=== PATIENT | female | born 2000 | race Caucasian/White ===

== ENCOUNTER 2023-11-03 15:21 | Inpatient (IN) ==
--- NOTE | 2023-11-03 15:29 | ED Triage Note ---
Date of Service November 03, 2023 Provider in Triage Author: Ki Hodgson History of Present Illness This patient was briefly evaluated while in triage. An abbreviated physical exam was performed. This patient is a 23-year-old Female who presents to the ED for evaluation of worsening OCD. Patient reports that she got into an argument/breaking up with her boyfriend yesterday, "worsening my mental health". Patient reports that she has thought of hurting herself, but does not have a plan. She denies any homicidal thoughts. Physical Exam CONSTITUTIONAL: Healthy and well nourished. HEENT: Normocephalic, atraumatic. LYMPHATICS: No cervical chain adenopathy. INTEGUMENTARY: No rash or other significant dermatologic conditions noted. HEMATOLOGIC: No ecchymosis or petechiae. PSYCHIATRIC: Flat affect. NEUROLOGIC: No focal neurologic deficits noted. Initial orders for labs and / or imaging were placed and patient was placed in the waiting area until a bed is available. Please see further documentation for the full ED course.
--- NOTE | 2023-11-03 15:56 | Emergency Department Note ---
Impression & Plan Suicidal ideation, Depression ED Provider Note HISTORY OF PRESENT ILLNESS: Patient is a 23-year-old female presenting with suicidal ideation. Patient reports that she has a history of OCD and is on Lexapro 10 mg. Reports she was previously on 5 mg, but her Lexapro was increased to 10 mg yesterday. Reports that as of late, she has been very stressed out and her OCD has been worse than normal. Reports that she broke up with her boyfriend yesterday and subsequently found out that he went and hooked up with a friend. She is feeling very depressed and wants to end her life. Reports multiple plans, including overdose on her Lexapro and walking out into traffic. She reports "I would want to make sure I do it right and if I had a gun I would use it." She initially called crisis who referred her to the emergency department. Patient denies any homicidal ideation. Denies any auditory or visual hallucinations. Reports she has not been eating well recently or sleeping well. Denies any previous suicide attempts. She does report that when she gets really stressed out she will scratch herself, but reports that she does not want to do that currently. ROS: as above PHYSICAL EXAM: Constitutional: Patient appears in no acute distress. HENT: Head: Normocephalic and atraumatic. Eyes: EOMI, PERRL Mouth/Throat: Mucous membranes moist. Neck: Trachea midline. Neck supple. Musculoskeletal: No edema, tenderness or deformity noted. Skin: Warm and dry. No rash, erythema, pallor or cyanosis Psychiatric: Flat affect. Tearful Neurological: Alert and keenly responsive. CN II-XII grossly intact, moving all extremities equally and fully. MDM: - Vitals signs stable. - History obtained via patient. Patient presents with suicidal ideation. Patient recently had a break-up with her boyfriend and some social stressors. She currently wants to end her life and has multiple plans. She has never been inpatient. She just had her Lexapro increased from 5 mg to 10 mg yesterday. - Chronic conditions affecting care: anxiety/depression - Differential diagnoses include, but are not limited to: UTI; depression; electrolyte abnormality - External medical records reviewed. - Laboratory workup interpreted by myself showed normal WBC; stable electrolytes; normal TSH; negative salicylate/acetaminophen/ethanol levels - UA negative for infection - UDS positive for THC - COVID negative - Patient seen in conjunction with ED behavioral health manager case. Patient was a voluntary 201. She was excepted to [address] [place] [address] inpatient psychiatric unit. ASSESSMENT AND PLAN: Diagnosis: Suicidal ideation; depression Plan: admit to [address] [place] [address] Past Med/Surg History Medical History (Updated 11/03/23 @ 17:30 by Britney Isaac MD) Migraines Dysmenorrhea Asthma Depression Heavy menses Social anxiety disorder Anorexia nervosa ASD (atrial septal defect) Hypermobility syndrome Chronic nausea Surgical History (Updated 09/10/23 @ 15:34 by Ti Mitchell MA) [place] teeth removed H/O laparoscopy Family History (Updated 09/10/23 @ 15:35 by Ti Mitchell MA) Mother Asthma Depression Sister Depression Social History (Updated 09/10/23 @ 15:24 by Ti Mitchell MA) Smoking Status: Current some day smoker Do You Dip or Chew Tobacco: No; Hx Alcohol Use: No Hx Substance Use: Yes Prescribed Medications: Marijuana Preferred Language: Spanish Feels Safe at Home: Yes Gender Identity: Female Allergies Allergies Allergy/AdvReac Type Severity Reaction Status Date / Time adhesive tape Allergy dermatitis Verified 12/19/21 15:34 Home Meds Home Medications Medication Instructions Recorded Confirmed albuterol sulfate 90 mcg/actuation 2 puff inhalation Q6H PRN Panic 09/10/23 11/03/23 aerosol inhaler Attack(S) Lexapro 10 mg PO DAILY Depression 11/03/23 11/03/23 Results & Data (ED) Vital Signs Vital Signs - 24 hr 11/03/23 15:25 Temperature 36.6 C Temperature Source Temporal Artery Scan Pulse Rate 87 Respiratory Rate 16 Respiratory Effort / Characteristics Non-Labored Spontaneous Respiratory Depth Normal Respiratory Pattern Regular Blood Pressure 130/96 Blood Pressure Mean 107 Pulse Oximetry 99 Oxygen Delivery Method Room Air Sepsis Recent Fever Within 48 Hours No Sepsis New/Unexplained Change in Mental Status N/A Sepsis Action Taken by Nursing No Action Required Laboratory Data 11/03/23 16:18 11/03/23 16:18 Lab Results 11/03/23 11/03/23 Range/Units 15:39 16:18 WBC 10.63 (4.8-10.8) K/ul RBC 4.83 (4.20-5.40) M/uL Hgb 14.4 (12.0-16.0) g/dl Hct 41.6 (37.0-47.0) % MCV 86.1 (80.0-100.0) fL MCH 29.8 (25.0-34.0) pg MCHC 34.6 (32.0-36.0) g/dL RDW Std Deviation 40.0 (36.4-46.3) fL RDW Coeff of Adam 12.8 (11.5-14.5) % Plt Count 230 (130-400) K/uL MPV 9.0 L (9.4-12.4) fL Immature Gran % (Auto) 0.3 % Neut % (Auto) 79.4 % Lymph % (Auto) 15.7 % Grady % (Auto) 4.3 % Eos % (Auto) 0.0 % Baso % (Auto) 0.3 % Neut # (Auto) 8.44 H (1.40-6.50) K/uL Lymph # (Auto) 1.67 (1.20-3.40) K/uL Grady # (Auto) 0.46 (0.11-0.59) K/uL Eos # (Auto) 0.00 (0.00-0.50) K/uL Baso # (Auto) 0.03 (0.00-0.20) K/uL Immature Gran # (Auto) 0.03 (0.01-0.20) K/uL Sodium 137 (136-145) mmol/L Potassium 3.5 (3.5-5.1) mmol/L Chloride 106 (98-107) mmol/L Carbon Dioxide 22 (21-32) mmol/L Anion Gap 9 (3-11) BUN 10 (6-23) mg/dl Creatinine 0.58 L (0.6-1.2) mg/dl Est Cr Clr Drug Dosing 114.8 ml/min Est GFR ( Amer) > 150.0 ml/min Est GFR (Non-Af Amer) 131.8 ml/min BUN/Creatinine Ratio 17.2 (10-20) Glucose 89 (70-99(Fasting)) mg/dl Calcium 9.8 (8.6-10.3) mg/dl Total Bilirubin 0.3 (0.2-1.0) mg/dl AST 16 (13-39) U/L ALT 9 (7-52) U/L Alkaline Phosphatase 53 (34-104) U/L Total Protein 7.6 (6.0-8.3) gm/dl Albumin 5.0 (3.4-5.0) gm/dl Globulin 2.6 (2.5-4.0) gm/dl Albumin/Globulin Ratio 1.9 (0.9-2) TSH 1.814 (0.300-4.500) uIu/ml Urine Color Yellow Urine Appearance Slightly Cloudy (Clear) Urine pH 8.5 H (4.5-7.5) Ur Specific Hallam 1.020 (1.000-1.030) Urine Protein 2+ H (Negative) Urine Glucose (UA) Negative (Negative) Urine Ketones Negative (Negative) Urine Blood Negative (Negative) Urine Nitrite Negative (Negative) Urine Bilirubin Negative (Negative) Urine Urobilinogen Negative (Negative) Ur Leukocyte Esterase Negative (Negative) Urine RBC 0-4 (0-4) /hpf Urine WBC 0-5 (0-5) /hpf Ur Epithelial Cells >30 H (0-5) /lpf Urine Bacteria Negative (Negative) Hyaline Casts 0-5 (0-5) /lpf Salicylates < 3.0 L (3.0-30) mg/dl Urine Opiates Screen Neg (Neg) Ur Methadone, Qual Neg (Neg) Acetaminophen < 3 L (10-30) ug/ml Urine Barbiturates Neg (Neg) Ur Phencyclidine (PCP) Neg (Neg) U Amphetamin/Meth Scrn Neg (Neg) MDMA (Ecstasy) Screen Neg (Neg) U Benzodiazepines Scrn Neg (Neg) Ur Cocaine Metabolite Neg (Neg) U Marijuana (THC) Screen Pos H (Neg) Ethyl Alcohol mg/dL < 10.0 (<10.0) mg/dl SARS-CoV-2, RNA, NAAT NEGATIVE (NEGATIVE) Discharge Plan Visit Data Chief Complaint: Mental Health Evaluation Stated Complaint: MENTAL HEALTH EVAL ED Provider: Britney Isaac Discharge Problem: Suicidal ideation, Depression Forms Stand Alone Forms: My [facility], Suicide Prevention Resources Prescriptions Prescriptions: No Action albuterol sulfate 90 mcg/actuation HFA aerosol inhaler 2 puff inhalation Q6H PRN (Reason: Panic Attack(S)) Lexapro capsule 10 mg PO DAILY Referrals Referrals: Conrad Gamez [Primary Care Provider] -
[2023-11-03 16:05] LABS: Appearance Urine Slightly Cloudy (Clear); Bilirubin Urine Negative (Negative); Blood Urine Negative (Negative); Color Urine Yellow; Glucose Urine UA Negative (Negative); Ketones Urine Negative (Negative); Leukocyte Esterase Urine Negative (Negative); Nitrite Urine Negative (Negative); Protein Urine 2+ (Negative); Urobilinogen Urine Negative (Negative); pH Urine 8.5 (4.5-7.5)
[2023-11-03 16:12] LABS: Epithelial Cell Urine >30 /lpf (0-5)
[2023-11-03 16:13] LABS: Bacteria Urine Negative (Negative); Hyaline Casts Urine 0-5 /lpf (0-5); RBC Urine 0-4 /hpf (0-4); WBC Urine 0-5 /hpf (0-5)
[2023-11-03 16:45] LABS: Amphetamines+Metham, Urine Neg (Neg); Barbiturates, Urine Neg (Neg); Benzodiazepine, Urine Neg (Neg); Cocaine, Urine Neg (Neg); MDMA (Ecstacy), Urine Neg (Neg); Marijuana, Urine Pos (Neg); Methadone, Urine Neg (Neg); Opiate, Urine Neg (Neg); Phencyclidine, Urine Neg (Neg)
[2023-11-03 16:47] LABS: Basophils # (auto) 0.03 K/uL (0.00-0.20); Basophils % (auto) 0.3 %; Hematocrit (blood only) 41.6 % (37.0-47.0); Hemoglobin 14.4 g/dl (12.0-16.0); Immature Granulocytes # (auto) 0.03 K/uL (0.01-0.20); Immature Granulocytes % (auto) 0.3 %; Lymphocytes # (auto) 1.67 K/uL (1.20-3.40); Lymphocytes % (auto) 15.7 %; Mean Corpuscular Hemoglobin 29.8 pg (25.0-34.0); Mean Corpuscular Hgb Conc 34.6 g/dL (32.0-36.0); Mean Corpuscular Volume 86.1 fL (80.0-100.0); Monocytes # (auto) 0.46 K/uL (0.11-0.59); Monocytes % (auto) 4.3 %; Neutrophils # (auto) 8.44 K/uL (1.40-6.50); Neutrophils % (auto) 79.4 %; Platelet Count 230 K/uL (130-400); RDW Coefficient of Variation 12.8 % (11.5-14.5); Red Blood Count 4.83 M/uL (4.20-5.40); White Blood Count 10.63 K/ul (4.8-10.8)
[2023-11-03 17:06] LABS: Acetaminophen < 3 ug/ml (10-30); Alanine Aminotransferase 9 U/L (7-52); Albumin Globulin Ratio 1.9 (0.9-2); Alkaline Phosphatase 53 U/L (34-104); Anion Gap 9 (3-11); Aspartate Aminotransferase 16 U/L (13-39); BUN Creatinine Ratio 17.2 (10-20); Bilirubin,Total 0.3 mg/dl (0.2-1.0); Blood Urea Nitrogen 10 mg/dl (6-23); Calcium 9.8 mg/dl (8.6-10.3); Carbon Dioxide 22 mmol/L (21-32); Chloride 106 mmol/L (98-107); Creatinine Clr Calc Pharmacy 114.8 ml/min; Est GFR (African American) > 150.0 ml/min; Est GFR (Non-African American) 131.8 ml/min; Globulin 2.6 gm/dl (2.5-4.0); Glucose 89 mg/dl (70-99(Fasting)); Potassium 3.5 mmol/L (3.5-5.1); Salicylate < 3.0 mg/dl (3.0-30); Sodium 137 mmol/L (136-145); Total Protein 7.6 gm/dl (6.0-8.3)
[2023-11-03 17:20] LABS: Thyroid Stimulating Hormone 1.814 uIu/ml (0.300-4.500)
[2023-11-03] MEDS ORDERED: hydrOXYzine HCl 25 MG TAB PO PRN (21:34)
[2023-11-03] MEDS ORDERED: BISMUTH SUBSALICYLATE LIQD 236 ML PO PRN (21:34)
[2023-11-03] MEDS ORDERED: ALUMINUM/MAGNESIUM SUSP 30 ML UDC PO PRN (21:34)
[2023-11-03] MEDS ORDERED: MAGNESIUM HYDROXIDE SUSP 30 ML UDC PO PRN (21:34)
[2023-11-03] MEDS ORDERED: SODIUM CHLORIDE 0.65% NA SOLN 45 ML (OCEAN) PRN (21:34)
[2023-11-04] MEDS: hydrOXYzine HCl 25 MG TAB PO PRN ×2 (00:34→21:11)
[2023-11-04] MEDS ORDERED: ESCITALOPRAM OXALATE 10 MG TAB PO SCH (09:00)
[2023-11-04] MEDS: ACETAMINOPHEN 325 MG TAB PO PRN (10:49)
--- NOTE | 2023-11-04 16:44 | History & Physical ---
Date of Service November 04, 2023 Impression / Recommendations Impression 23 y/o F with history of OCD, anorexia, possibly ASD who had a recent severe relationship loss and became actively suicidal. Her longstanding obsessions take the form of intrusive thoughts of or of ways she might kill herself. She has no history of treatment attempts prior to the recently-started escitalopram. She meets criteria for Adjustment Disorder with Depressed Mood and Obsessive- Compulsive Disorder. She is currently psychiatrically unstable and requires psychiatric hospitalization for safety, stabilization, and medication management. Pt volunteered her understanding that SSRI's are a preferred type of medication for OCD as well as that her current dose was likely still low. Risks and benefits of, and alternatives to, the use of escitalopram (Lexapro) for Obsessive-Compulsive Disorder symptoms were reviewed. This discussion included but was not limited to issues known potentially to be associated with use of such medication, especially at high doses or with longer use, including sedati on, weight gain, GI side effects, or rarely induction or worsening of suicidal thoughts about which there is an FDA warning for adolescents and young adults. Discussed the need to avoid abrupt cessation due to risk of discontinuation syndrome. The patient would like to titrate escitalopram to 20 mg. Overall I spent a total of 82 minutes on the floor for this admission including review of chart records, review of test results, direct evaluation of the patient [id number], counseling the patient, reconciling and ordering medication, medication education with the patient, risk assessment, discussion during interdisciplinary treatment rounds, and documentation in the electronic health record. (1) Adjustment disorder with depressed mood: (2) Obsessive compulsive disorder: Plan The patient was admitted to the [facility] ([facility] unit) on q15 minute checks (behavioral with suicide precautions) for safety.The patient will participate in group, recreational, and milieu therapies and will be offered additional individual and family sessions as clinically appropriate. * increase escitalopram to 20 mg daily - prior to admission medication at 10 mg daily Inventory Assets Strengths: supportive relationships, has local supports, voluntary, good insight, intelligent, attending classes Needs: safety and stabilization, medication adjustment, additional coping skills Suicide Risk Level Suicide Risk Level: High-Moderate (q15 min suicide checks) (continues to have thoughts, though contracts for safety on the unit) 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 Chief Complaint "My obsessions have really gotten out of control". History of Present Illness As part of a thorough review of the available medical records, I have read and incorporated into my assessment the following note by the ED physician: "This patient is a 23-year-old Female who presents to the ED for evaluation of worsening OCD. Patient reports that she got into an argument/breaking up with her boyfriend yesterday, "worsening my mental health". Patient reports that she has thought of hurting herself, but does not have a plan. She denies any homicidal thoughts." the following note by the ED psychiatric piano case maker: "Met with the patient during Dr. Herrera examination to complete Brief and Suicide Risk Assessments then met with the patient to gather information for [facility] Psychiatric Mental Health Evaluation. The patient presents from [facility] where she was assessed and expressed suicidal ideations following the breakup with her boyfriend of almost 2 years (reports she thought the relationship was going well and wasnt expecting the breakup. The patient reports she doesnt have a specific plan at this time, but has thought of ways to kill herself, but doesnt want to do anything that doesnt work. She reports she has thought of overdosing on medication or walking in front of a car, but the cars go too slow, so I would have to walk somewhere else. The patient reports he boyfriend broke up with her because he found out he wont be able to graduate due to grades and he felt he wouldnt be a good partner for her. She reports he hasnt wanted to talk to her about the breakup and found out that he hooked up with a close friend of his after breaking up with her. The patient reports she was already in a bad place with her mental health secondary to her OCD and report recently starting on Lexapro (increased to 10mg yesterday), but she doesnt feel as though it is effective yet. The patient reports stressors of her breakup and her general mental health related to her OCD. She reports she has depressive symptoms of anergia, anhedonia, crying and feeling helpless and hopeless. She reports a history of anorexia nervosa (treated a year ago and hasnt had any problems since then) and a poor appetite of the past few days since the breakup. The patient reports problems falling and staying asleep, then not being motivated to get up in the mornings, which causes her to miss classes (reports she isnt doing poorly in school, but may be getting Bs instead of As in some of her classes). The patient reports high levels of anxiety recently (currently a 9) with shortness of breath, chest pain and decreased appetite. The patient admits to social drinking and using marijuana prior to meals (related to history of gastroparesis). She reports a history of SIB from scratching (last around a year ago) and a remote history of friction vogel from erasers. The patient denies manic symptoms, hallucinations / delusional thinking, H/I, aggressive behavior, trauma and access to weapons. The patient is considering inpatient treatment but would like to speak with her mother (who is on the way to the hospital) prior to making any decisions." and the following note by the psychiatric liaison nurse: "Alert and oriented x4. Pt tearful but cooperative. Pt allowed for mom and sister to stay in room during liaison assessment in ED. 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 Pt states she took an uber to the ED. Pt states having suicidal ideations for past 9 months but had escalated after her boyfriend had broken up with her a day (or so) ago. Pt states her boyfriend knew he was not going to pass and graduate from [employer] and that's why he said he was breaking up with her. Pt states then her ex hooked up with one of his female friends yesterday. Pt states she was already having issues with mental health. Pt states she has OCD and has been having intrusive thoughts about for last 9 months as well. Pt denies these thoughts as any type of hallucinations telling her to kill herself. Pt denies any type of hallucinations or delusions. Pt denies current SI but has scratched her skin and given herself friction vogel with erasers over a year ago. Pt states having a hx of OCD, autism, anorexia, and past social anxiety disorder. Pt also stating having gastroparesis (and eating marijuana gummies to help with this). Pt denies hx of suicide attempts. Denies trauma hx. Pt denies prior psychiatric inpatient admissions. Later states she was hospitalized in fall 2021 for anorexia. Pt states current medications include Lexapro that was started a few weeks ago and recently increased to 10mg po daily. Current outpt providers include Dr. Gamez with [facility], Ernesto Edwards (therapy), and Neha Au [facility] at [facility] (who prescribes her Lexapro). Pt states appetite as been poor. Has been sleeping t oo much averaging 11hrs with trouble waking up. Anxiety normally 7/10 but recently 9/10. Depression normally 5/10 but now a 7 due to the breakup. Pt denies tobacco use. Uses marijuana gummies and occasional alcohol. Pt states she drinks socially approx once per month with 5-6 drinks per occasion. Pt denies legal issues. Pt denies access to firearms at dorm room. Guns at home with parents that are locked up according to pt. Pt states having one roommate but wouldn't say she is a support. Pt states her family members are good supports and protective factors. Pt states at times "thinking about my family shouldn't stop me from ending things." Pt states she enjoys hanging out with friends, playing video games, drawing , and watching documentaries. ROIs signed for parents (Celeste and Viktor Lamar), Dr. Gamez, Ernesto Edwards, and Neha Au." Review of the medical record reveals no previous or outside psychiatric records. Review of pertinent labs reveals they are noncontributory. A urine toxicology screen was positive for metabolites of cannabis. BAL was <10 mg/dL. screen was negative. Pt reports "lifelong" obsessions, with her first severe period at age 8 years. Her obsessions take the form of "intrusive thoughts of ", including images of people, repetitive thoughts of ways in which she might kill herself, or thoughts about the deaths of people close to her. These are highly ego-dystonic and she engages in various mental rituals (especially forcing herself to repeat abhorrent thoughts). She makes copious lists but isn't sure if that's compulsive or coping. She has a history of anorexia with an admission to an eating disorders unit in 2021 and says she's now in recovery. She has long struggled with initial and middle insomnia and daytime hypersomnia. She had a polysomnographic sleep study in April of 2023 that was interpreted as essentially normal. Denies a history of depression symptoms until very recently when her boyfriend of 2 years abruptly announced that he'd slept with one of her friends because he got poor grades and wasn't good enough for her. She's felt sad, overwhelmed, and hopeless and began contemplating walking in front of a car to kill herself, but didn't because she wasn't sure it would kill rather than maim her. She says OCD was only recently diagnosed and that she started escitalopram 5 mg a couple of weeks ago that was increased to 10 mg a few days ago. She had first been started on bupropion but "it was horrible" and exacerbated her anxiety. Past Psychiatric History Current Psychiatric Diagnosis: OCD Outpatient Services: Dr. Gamez with [facility], Ernesto Edwards (therapy), and Neha Au [facility] Previous Psych Admissions: eating disorders unit fall 2021 Do You Have Access To A Gun?: No History of Previous Suicide Attempt: No Past Medication Trials: bupropion - anxiety Allergies Allergy/AdvReac Type Severity Reaction Status Date / Time adhesive tape Allergy dermatitis Verified 12/19/21 15:34 Home Medications Medication Instructions Recorded Confirmed Type albuterol sulfate 90 mcg/actuation 2 puff inhalation Q6H PRN Panic 09/10/23 11/03/23 History aerosol inhaler Attack(S) Lexapro 10 mg PO DAILY Depression 11/03/23 11/03/23 History Family History Family History of: Alcoholism/Drug Abuse and Other-List under Comment Family Mental Health History Comment: sister struggles- BPD, MDD, MANOJ maternal aunt and cousin- eating disorders, depression great, great grandmother- depression- received electroshock therapy Alcohol History Hx of Alcohol Use Over the Past 12 Months: Yes AUDIT Total Score: 4 Smoking Use Have You Smoked or Used Tobacco Products in the Last 30 Days: No Smoking Status: Current some day smoker Substance History Hx of Prescription Med Misuse Over the Past 12 Months: No Hx of Over the Counter Med Misuse Over the Past 12 Months: No Hx of Inhalent Misuse Over the Past 12 Months: No Hx of Organic Substance Use Over the Past 12 Months: Yes Hx of Illegal Substances/Street Drug Use Over Past 12 Months: No Problems as a Result of Past Substance Use: None Identified Personal History Living Arrangements: Dorm Highest Grade Completed: Graduate School Highest Grade Completed Comment: at [employer] Marital Status: Single Number Of Children: 0 Beliefs That Will Affect Care: None Patient History Medical History (Updated 11/04/23 @ 17:06 by Tyler Ortega MD) Adjustment disorder with depressed mood Obsessive compulsive disorder Unintentional weight loss KING (dyspnea on exertion) Chest discomfort Symptomatic orthostatic increase in heart rate Dizziness Lightheaded Migraines Dysmenorrhea Asthma Heavy menses Social anxiety disorder Anorexia nervosa ASD (atrial septal defect) Hypermobility syndrome Chronic nausea Surgical History (Updated 09/10/23 @ 15:34 by Ti Mitchell MA) [place] teeth removed H/O laparoscopy Family History (Updated 09/10/23 @ 15:35 by Ti Mitchell MA) Mother Asthma Depression Sister Depression Social History (Updated 09/10/23 @ 15:24 by Ti Mitchell MA) Smoking Status: Current some day smoker Do You Dip or Chew Tobacco: No; Hx Alcohol Use: No Hx Substance Use: Yes Prescribed Medications: Marijuana Preferred Language: Sami Communication Ability: Effective Wireline Supervisor Required: No Beliefs That Will Affect Care: None Feels Safe at Home: Yes Gender Identity: Female Assistive Devices: Glasses Review of Systems Psychiatric: + depression, + abnormal sleep pattern, + suicidal ideation and + anxiety; no paranoia, no hallucinations and no substance abuse Physical Exam Psychiatric: Orientation: alert, oriented to person, oriented to place, oriented to time and cooperative Apperance: appropriately dressed and appropriately groomed Eye Contact: + fair eye contact Motor Behavior: no abnormal motor movements Speech: normal rate/rhythm/volume of speech Affect: + constricted affect Mood: + depressed mood and + anxious mood Thought Process: linear/logical thought process and thought association intact Thought Content: + obsessions and reality based without delusions Suicidal Thoughts: denies suicidal plan and denies suicidal intent; + reports suicidal thoughts (currently passive) Homicidal Thoughts: denies homicidal thoughts Hallucinations: no auditory hallucinations and no visual hallucinations Cognition: recent memory grossly intact, remote memory grossly intact, attention grossly intact and language grossly intact Estimated Intelligence: consistent with education level Insight: + fair insight Judgment: + fair judgement Vital Signs (Past 24 Hours): Last Vital Signs Temp 36.9 C 11/04/23 06:32 Pulse 90 11/04/23 06:33 Resp 16 11/04/23 06:32 BP 111/62 11/04/23 06:33 Pulse Ox 98 11/03/23 22:23 O2 Del Method Room Air 11/03/23 22:23 Exam Statement: A physical exam was performed in the ED for the purposes of medical clearance. I accept that physical as correct and adequate for the purposes of the inpatient physical exam and have incorporated that information into my assessment. Results & Data ([facility]) Laboratory Results Laboratory Results - last 24 hr 11/03/23 11/03/23 15:39 16:18 WBC 10.63 RBC 4.83 Hgb 14.4 Hct 41.6 MCV 86.1 MCH 29.8 MCHC 34.6 RDW Std Deviation 40.0 RDW Coeff of Adam 12.8 Plt Count 230 MPV 9.0 L Immature Gran % (Auto) 0.3 Neut % (Auto) 79.4 Lymph % (Auto) 15.7 [place] % (Auto) 4.3 Eos % (Auto) 0.0 Baso % (Auto) 0.3 Neut # (Auto) 8.44 H Lymph # (Auto) 1.67 [place] # (Auto) 0.46 Eos # (Auto) 0.00 Baso # (Auto) 0.03 Immature Gran # (Auto) 0.03 Sodium 137 Potassium 3.5 Chloride 106 Carbon Dioxide 22 Anion Gap 9 BUN 10 Creatinine 0.58 L Est Cr Clr Drug Dosing 114.8 Est GFR ( Amer) > 150.0 Est GFR (Non-Af Amer) 131.8 BUN/Creatinine Ratio 17.2 Glucose 89 Calcium 9.8 Total Bilirubin 0.3 AST 16 ALT 9 Alkaline Phosphatase 53 Total Protein 7.6 Albumin 5.0 Globulin 2.6 Albumin/Globulin Ratio 1.9 TSH 1.814 Salicylates < 3.0 L Urine Opiates Screen Neg Ur Methadone, Qual Neg Acetaminophen < 3 L Urine Barbiturates Neg Ur Phencyclidine (PCP) Neg U Amphetamin/Meth Scrn Neg MDMA (Ecstasy) Screen Neg U Benzodiazepines Scrn Neg Ur Cocaine Metabolite Neg U Marijuana (THC) Screen Pos H U Marijuana THC Carboxy Pending Drug Screen Comment Pending Ethyl Alcohol mg/dL < 10.0 Current Inpatient Medications Current Inpatient Medications: Current Inpatient Medications Acetaminophen (Acetaminophen 325 Mg Tab) 650 mg PO Q4H PRN PRN Reason: Headache or Minor Fever Stop: 12/03/23 21:33 Last Admin: 11/04/23 10:49 Dose: 650 mg Al Hydrox/Mg Hydrox/Simethicone (Aluminum/Magnesium Susp 30 Ml Udc) 30 ml PO Q4H PRN PRN Reason: GI Upset Stop: 12/03/23 21:33 Bismuth Subsalicylate (Bismuth Subsalicylate Liqd 236 Ml) 15 ml PO PRN PRN PRN Reason: Loose Stool Stop: 12/03/23 21:33 Escitalopram Oxalate (Escitalopram Oxalate 20 Mg Tab) 20 mg PO QDL NABILA Stop: 12/05/23 12:29 Hydroxyzine HCl (Hydroxyzine Hcl 25 Mg Tab) 50 mg PO HSZ PRN PRN Reason: Insomnia Stop: 12/03/23 21:33 Last Admin: 11/04/23 00:34 Dose: 50 mg Hydroxyzine HCl (Hydroxyzine Hcl 25 Mg Tab) 25 mg PO Q4H PRN PRN Reason: Anxiety Stop: 12/03/23 21:33 Magnesium Hydroxide (Magnesium Hydroxide Susp 30 Ml Udc) 30 ml PO DAILY PRN PRN Reason: Constipation Stop: 12/03/23 21:33 Sodium Chloride (Sodium Chloride 0.65% Na Soln 45 Ml ([place])) 1 - 2 sprays NA PRN PRN PRN Reason: Nasal Dryness/Congestion Stop: 12/03/23 21:33
[2023-11-05] MEDS: ACETAMINOPHEN 325 MG TAB PO PRN (11:06)
[2023-11-05] MEDS ORDERED: ESCITALOPRAM OXALATE 10 MG TAB PO SCH (12:30)
[2023-11-05] MEDS: ESCITALOPRAM OXALATE 20 MG TAB PO SCH (12:54)
--- NOTE | 2023-11-05 16:15 | Psychiatric Progress Note ---
Date of Service November 05, 2023 Impression / Recommendations Impression 23 y/o F with history of OCD, anorexia, possibly ASD who had a recent severe relationship loss and became actively suicidal. Her longstanding obsessions take the form of intrusive thoughts of or of ways she might kill herself. She has no history of treatment attempts prior to the recently-started escitalopram. She meets criteria for Adjustment Disorder with Depressed Mood and Obsessive- Compulsive Disorder. She is currently psychiatrically unstable and requires psychiatric hospitalization for safety, stabilization, and medication management. 11/05/2023: Spent most of the morning in bed. She says "that's normal" for her in general, but that she slept especially poorly last night was intrusive, obsessive thoughts. She did attend groups last night and once she got up today. She has tolerated increase in escitalopram well, with no adverse effects attributed to that medication. 11/04/2023: Pt volunteered her understanding that SSRI's are a preferred type of medication for OCD as well as that her current dose was likely still low. Risks and benefits of, and alternatives to, the use of escitalopram (Lexapro) for Obsessive-Compulsive Disorder symptoms were reviewed. This discussion included but was not limited to issues known potentially to be associated with use of such medication, especially at high doses or with longer use, including sedation, weight gain, GI side effects, or rarely induction or worsening of suicidal thoughts about which there is an FDA warning for adolescents and young adults. Discussed the need to avoid abrupt cessation due to risk of discontinuation syndrome. The patient would like to titrate escitalopram to 20 mg. (1) Adjustment disorder with depressed mood: (2) Obsessive compulsive disorder: Plan 11/05/2023: * continue escitalopram 20 mg daily * In addition to the screening labs ordered in the ED, will order vitamin B12 level, folic acid level, 25-OH vitamin D level, ESR to rule out conditions potentially related to psychiatric symptoms. 11/04/2023: The patient was admitted to the [facility] ([facility] mental health unit) on q15 minute checks (behavioral with suicide precautions) for safety.The patient will participate in group, recreational, and milieu therapies and will be offered additional individual and family sessions as clinically appropriate. * increase escitalopram to 20 mg daily - prior to admission medication at 10 mg daily Inventory Assets Strengths: supportive relationships, has local supports, voluntary, good insight, intelligent, attending classes Needs: safety and stabilization, medication adjustment, additional coping skills Suicide Risk Level Suicide Risk Level: High-Moderate (q15 min suicide checks) (continues to have thoughts, though contracts for safety on the unit) 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 Too many intrusive thoughts". Review of Systems Sleep Information Total Hours of Sleep: 6.25 Meal Information Percent Meal Consumed - Breakfast: 0 Percent Meal Consumed - Lunch: 70 Percent Meal Consumed - Dinner: 65 Nutrition Comment: pt stated that her dinner was good. pt has a history of eating disorder. Subjective Subjective The patient was seen and assessed and interval progress reviewed in a multidisciplinary team meeting with the treatment team. For details, see the "Impression" section. Overall I spent a total of 41 minutes for this inpatient follow-up including review of chart records, direct evaluation of the patient [id number], counseling the patient, reconciling and ordering medication, medication education with the patient, risk assessment, discussion during interdisciplinary treatment rounds, and documentation in the electronic health record. Physical Exam Psychiatric Orientation: alert, oriented to person, oriented to place, oriented to time and cooperative Apperance: appropriately dressed and appropriately groomed Eye Contact: + fair eye contact Motor Behavior: no abnormal motor movements Speech: normal rate/rhythm/volume of speech Affect: + constricted affect Mood: + depressed mood and + anxious mood Thought Process: linear/logical thought process and thought association intact Thought Content: + obsessions and reality based without delusions Suicidal Thoughts: denies suicidal plan and denies suicidal intent; + reports suicidal thoughts (currently passive) Homicidal Thoughts: denies homicidal thoughts Hallucinations: no auditory hallucinations and no visual hallucinations Cognition: recent memory grossly intact, remote memory grossly intact, attention grossly intact and language grossly intact Estimated Intelligence: consistent with education level Insight: + fair insight Judgment: + fair judgement Vital Signs (Past 24 Hours) Last Vital Signs Temp 36.8 C 11/05/23 06:25 Pulse 89 11/05/23 06:25 Resp 16 11/05/23 06:25 BP 123/57 L 11/05/23 06:25 Pulse Ox 98 11/03/23 22:23 O2 Del Method Room Air 11/03/23 22:23 Results & Data ([facility]) Current Inpatient Medications Current Inpatient Medications: Current Inpatient Medications Acetaminophen (Acetaminophen 325 Mg Tab) 650 mg PO Q4H PRN PRN Reason: Headache or Minor Fever Stop: 12/03/23 21:33 Last Admin: 11/05/23 11:06 Dose: 650 mg Al Hydrox/Mg Hydrox/Simethicone (Aluminum/Magnesium Susp 30 Ml Udc) 30 ml PO Q4H PRN PRN Reason: GI Upset Stop: 12/03/23 21:33 Bismuth Subsalicylate (Bismuth Subsalicylate Liqd 236 Ml) 15 ml PO PRN PRN PRN Reason: Loose Stool Stop: 12/03/23 21:33 Escitalopram Oxalate (Escitalopram Oxalate 20 Mg Tab) 20 mg PO QDL NABILA Stop: 12/05/23 12:29 Last Admin: 11/05/23 12:54 Dose: 20 mg Hydroxyzine HCl (Hydroxyzine Hcl 25 Mg Tab) 50 mg PO HSZ PRN PRN Reason: Insomnia Stop: 12/03/23 21:33 Last Admin: 11/04/23 21:11 Dose: 50 mg Hydroxyzine HCl (Hydroxyzine Hcl 25 Mg Tab) 25 mg PO Q4H PRN PRN Reason: Anxiety Stop: 12/03/23 21:33 Magnesium Hydroxide (Magnesium Hydroxide Susp 30 Ml Udc) 30 ml PO DAILY PRN PRN Reason: Constipation Stop: 12/03/23 21:33 Sodium Chloride (Sodium Chloride 0.65% Na Soln 45 Ml ([place])) 1 - 2 sprays NA PRN PRN PRN Reason: Nasal Dryness/Congestion Stop: 12/03/23 21:33 Mental Health & Subst Abuse Tx Psychiatrist [facility] Date Of Appointment With Psychiatric Provider: 11/28/2023 Time of Appointment with Psychiatrist: 2:30pm Psychiatric Appointment Comment: telehealth Therapist Name of Therapist: Kiet Hull, [employer] Therapist's Phone Number: Therapy Appointment Comment: [id number], [place] [address] Assistant Speech Language Pathologist Name of Assistant Speech Language Pathologist: [employer] Phone Number for Assistant Speech Language Pathologist: [phone] Case Management Appointment Comment: Zoom link will be sent to [employer] email Post Discharge Appointments Primary Care Physician Name Of Family Doctor/PCP: [facility] Primary Care Time of Appointment with PCP: please follow up as needed Provider Appointment Comment: [facility] Contact Information Discharge Discharge Address: [address] [place] [address], [place] [address] Contact Information Comment: [facility] ([facility]) Obsessive compulsive disorder Obsessive-compulsive disorder type: mixed obsessional thoughts and acts Qualified Code(s): F42.2 - Mixed obsessional thoughts and acts
[2023-11-05] MEDS ORDERED: hydrOXYzine HCl 25 MG TAB PO PRN (17:05)
[2023-11-05 18:42] LABS: Folate (Folic Acid),Ser orPlas 18.68 ng/ml (>5.38)
--- NOTE | 2023-11-06 08:33 | Psychiatric Progress Note ---
Date of Service November 06, 2023 Impression / Recommendations Impression 23 y/o F with history of OCD, anorexia, possibly ASD who had a recent severe relationship loss and became actively suicidal. Her longstanding obsessions take the form of intrusive thoughts of or of ways she might kill herself. She has no history of treatment attempts prior to the recently-started escitalopram. She meets criteria for Adjustment Disorder with Depressed Mood and Obsessive- Compulsive Disorder. She is currently psychiatrically unstable and requires psychiatric hospitalization for safety, stabilization, and medication management. 11/06/2023: Tearful at times. Spoke with her ex-boyfriend by phone. He was apologetic but she isn't sure to what degree she should accept his apologies and intends not to reconcile with without couple therapy first. She's felt more sad since then. Slept poorly again, with intrusive, obsessive thoughts with no improvement following increase of hydroxyzine to 100 mg. She remains very anxious (was visibly apprehensive when a therapy dog visited the unit) and finds that she feels very nauseated when anxious. Discussed with pt that there are a few RCTs indicating that olanzapine can be effective for obsessive-compulsive symptoms. Risks and benefits of, and alternatives to, the use of olanzapine (Zyprexa) off-label for OCD symptoms were reviewed. This discussion included but was not limited to issues known potentially to be associated with use of such medication, especially at high doses or with longer use, including sedation, weight gain, problems with glucose metabolism including Type II diabetes, problems with lipid metabolism, cardiac conduction problems, or rarely involuntary movements, parkinsonian symptoms, or even acute dystonia or life-threatening Neuroleptic Malignant Syndrome. Discussed the need for periodic monitoring of fasting glucose or Hemoglobin A1c and fasting lipid panel, which had previously been done so were not repeated for baseline monitoring. The patient would like to start a trial of olanzapine. Has been active in the milieu and in groups 11/05/2023: Spent most of the morning in bed. She says "that's normal" for her in general, but that she slept especially poorly last night was intrusive, obsessive thoughts. She did attend groups last night and once she got up today. She has tolerated increase in escitalopram well, with no adverse effects attributed to that medication. 11/04/2023: Pt volunteered her understanding that SSRI's are a preferred type of medication for OCD as well as that her current dose was likely still low. Risks and benefits of, and alternatives to, the use of escitalopram (Lexapro) for Obsessive-Compulsive Disorder symptoms were reviewed. This discussion included but was not limited to issues known potentially to be associated with use of such medication, especially at high doses or with longer use, including sedation, weight gain, GI side effects, or rarely induction or worsening of suicidal thoughts about which there is an FDA warning for adolescents and young adults. Discussed the need to avoid abrupt cessation due to risk of discontinuation syndrome. The patient would like to titrate escitalopram to 20 mg. (1) Adjustment disorder with depressed mood: (2) Obsessive compulsive disorder: (3) Vitamin D insufficiency: Plan 11/06/2023: * start ergocalciferol 50,000 IU weekly x 4 weeks * continue escitalopram 20 mg daily * increase hydroxyzine to 150 mg QHS * start lorazepam 0.5 mg Q6H PRN anxiety * start olanzapine 5 mg QHS * start ondansetron ODT 4 mg SL Q6H PRN nausea 11/05/2023: * continue escitalopram 20 mg daily * In addition to the screening labs ordered in the ED, will order vitamin B12 level, folic acid level, 25-OH vitamin D level, ESR to rule out conditions potentially related to psychiatric symptoms. 11/04/2023: The patient was admitted to the [facility] ([facility] mental health unit) on q15 minute checks (behavioral with suicide precautions) for safety.The patient will participate in group, recreational, and milieu therapies and will be offered additional individual and family sessions as clinically appropriate. * increase escitalopram to 20 mg daily - prior to admission medication at 10 mg daily Inventory Assets Strengths: supportive relationships, has local supports, voluntary, good insight, intelligent, attending classes Needs: safety and stabilization, medication adjustment, additional coping skills Suicide Risk Level Suicide Risk Level: High-Moderate (q15 min suicide checks) (continues to have thoughts, though contracts for safety on the unit) 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 Review of Systems Sleep Information Total Hours of Sleep: 6 Sleep Comments: Awoke early Meal Information Percent Meal Consumed - Breakfast: 0 Percent Meal Consumed - Lunch: 70 Percent Meal Consumed - Dinner: 50 Nutrition Comment: pt stated that her dinner was good. pt has a history of eating disorder. Subjective Subjective The patient was seen and assessed and interval progress reviewed in a multidisciplinary team meeting with [the treatment team][psychiatric liaison ][nursing and social work]. For details, see the "Impression" section. Overall I spent a total of 49 minutes for this inpatient follow-up including review of chart records, direct evaluation of the patient [id number], counseling the patient, reconciling and ordering medication, medication education with the patient, risk assessment, discussion during interdisciplinary treatment rounds, and documentation in the electronic health record. Physical Exam Psychiatric Orientation: alert, oriented to person, oriented to place, oriented to time and cooperative Apperance: appropriately dressed and appropriately groomed Eye Contact: + fair eye contact Motor Behavior: no abnormal motor movements Speech: normal rate/rhythm/volume of speech Affect: + constricted affect Mood: + depressed mood and + anxious mood Thought Process: linear/logical thought process and thought association intact Thought Content: + obsessions and reality based without delusions Suicidal Thoughts: denies suicidal plan and denies suicidal intent; + reports suicidal thoughts (currently passive) Homicidal Thoughts: denies homicidal thoughts Hallucinations: no auditory hallucinations and no visual hallucinations Cognition: recent memory grossly intact, remote memory grossly intact, attention grossly intact and language grossly intact Estimated Intelligence: consistent with education level Insight: + fair insight Judgment: + fair judgement Vital Signs (Past 24 Hours) Last Vital Signs Temp 37.1 C 11/06/23 06:33 Pulse 64 11/06/23 06:34 Resp 18 11/06/23 06:33 BP 109/69 11/06/23 06:34 Pulse Ox 98 11/03/23 22:23 O2 Del Method Room Air 11/03/23 22:23 Results & Data ([facility]) Laboratory Results Laboratory Results - last 24 hr 11/05/23 17:24 ESR 3 Vitamin B12 375 25-OH Vitamin D Total 22.0 L Folate 18.68 Current Inpatient Medications Current Inpatient Medications: Current Inpatient Medications Acetaminophen (Acetaminophen 325 Mg Tab) 650 mg PO Q4H PRN PRN Reason: Headache or Minor Fever Stop: 12/03/23 21:33 Last Admin: 11/05/23 11:06 Dose: 650 mg Al Hydrox/Mg Hydrox/Simethicone (Aluminum/Magnesium Susp 30 Ml Udc) 30 ml PO Q4H PRN PRN Reason: GI Upset Stop: 12/03/23 21:33 Bismuth Subsalicylate (Bismuth Subsalicylate Liqd 236 Ml) 15 ml PO PRN PRN PRN Reason: Loose Stool Stop: 12/03/23 21:33 Escitalopram Oxalate (Escitalopram Oxalate 20 Mg Tab) 20 mg PO QDL NABILA Stop: 12/05/23 12:29 Last Admin: 11/05/23 12:54 Dose: 20 mg Hydroxyzine HCl (Hydroxyzine Hcl 25 Mg Tab) 25 mg PO Q4H PRN PRN Reason: Anxiety Stop: 12/03/23 21:33 Last Admin: 11/06/23 06:14 Dose: 25 mg Hydroxyzine HCl (Hydroxyzine Hcl 25 Mg Tab) 100 mg PO HSZ PRN PRN Reason: Insomnia Stop: 12/03/23 21:33 Last Admin: 11/05/23 20:00 Dose: 100 mg Magnesium Hydroxide (Magnesium Hydroxide Susp 30 Ml Udc) 30 ml PO DAILY PRN PRN Reason: Constipation Stop: 12/03/23 21:33 Sodium Chloride (Sodium Chloride 0.65% Na Soln 45 Ml ([place])) 1 - 2 sprays NA PRN PRN PRN Reason: Nasal Dryness/Congestion Stop: 12/03/23 21:33 Mental Health & Subst Abuse Tx Psychiatrist Name of Psychiatrist: Judah De La Cruz- [facility] Psychiatrist's Date Of Appointment With Psychiatric Provider: 11/28/2023 Time of Appointment with Psychiatrist: 2:30pm Psychiatric Appointment Comment: telehealth Therapist Name of Therapist: Kiet Hull, [employer] Therapist's Phone Number: [phone] Therapy Appointment Comment: [address] [facility] [address], [place] [address] Political Worker Name of Political Worker: [employer] Phone Number for Political Worker: [phone] Case Management Appointment Comment: Zoom link will be sent to [employer] email Post Discharge Appointments Primary Care Physician Name Of Family Doctor/PCP: [facility] Primary Care Time of Appointment with PCP: please follow up as needed Provider Appointment Comment: [facility] Contact Information Discharge Discharge Address: [address] [place] [address], [place] [address] Contact Information Comment: locally lives in [employer] dorm (2) Obsessive compulsive disorder Obsessive-compulsive disorder type: mixed obsessional thoughts and acts Qualified Code(s): F42.2 - Mixed obsessional thoughts and acts
[2023-11-06] MEDS: ESCITALOPRAM OXALATE 20 MG TAB PO SCH (13:05)
[2023-11-06] MEDS ORDERED: LORazepam 0.5 MG TAB PO PRN (13:23)
[2023-11-06] MEDS ORDERED: ONDANSETRON 4 MG OD TAB PO PRN (14:09)
[2023-11-06] MEDS ORDERED: ERGOCALCIFEROL 1250 MCG (50,000 UNITS) CAP PO ONE (14:30)
[2023-11-06] MEDS ORDERED: hydrOXYzine HCl 25 MG TAB PO SCH (22:00)
[2023-11-06] MEDS: OLANZapine 5 MG TABLET PO SCH (22:01)
--- NOTE | 2023-11-07 08:59 | Psychiatric Progress Note ---
Date of Service November 07, 2023 Impression / Recommendations Impression 23 y/o F with history of OCD, anorexia, possibly ASD who had a recent severe relationship loss and became actively suicidal. Her longstanding obsessions take the form of intrusive thoughts of or of ways she might kill herself. She has no history of treatment attempts prior to the recently-started escitalopram. She meets criteria for Adjustment Disorder with Depressed Mood and Obsessive- Compulsive Disorder. She is currently psychiatrically unstable and requires psychiatric hospitalization for safety, stabilization, and medication management. 11/07/2023: 25-OH vitamin D level was in the insufficient range at 22.0 ng/mL. The remainder of the labs ordered yesterday were normal. I reviewed those results with pt. Slept somewhat better last night; she was able to get to sleep within about an hour with fewer intrusive ruminations about and "was able to get back to sleep relatively quickly" the several times she woke during the night. She continues to voice suicidal thoughts in addition to her chronic -themed obsessive thoughts but says that these thoughts are less prominent and are become difficult to distinguish from her -oriented obsessive thoughts. Discussed her low BP as a likely reason for her dizziness as well as possibility that recent medication changes might be driving that. She's hesitant to reduce medication dose, especially olanzapine, because it seems to be helping. 11/06/2023: Tearful at times. Spoke with her ex-boyfriend by phone. He was apologetic but she isn't sure to what degree she should accept his apologies and intends not to reconcile with without couple therapy first. She's felt more sad since then. Slept poorly again, with intrusive, obsessive thoughts with no improvement following increase of hydroxyzine to 100 mg. She remains very anxious (was visibly apprehensive when a therapy dog visited the unit) and finds that she feels very nauseated when anxious. Discussed with pt that there are a few RCTs indicating that olanzapine can be effective for obsessive-compulsive symptoms. Risks and benefits of, and alternatives to, the use of olanzapine (Zyprexa) off-label for OCD symptoms were reviewed. This discussion included but was not limited to issues known potentially to be associated with use of such medication, especially at high doses or with longer use, including sedation, weight gain, problems with glucose metabolism including Type II diabetes, problems with lipid metabolism, cardiac conduction problems, or rarely involuntary movements, parkinsonian symptoms, or even acute dystonia or life-threatening Neuroleptic Malignant Syndrome. Discussed the need for periodic monitoring of fasting glucose or Hemoglobin A1c and fasting lipid panel, which had previously been done so were not repeated for baseline monitoring. The patient would like to start a trial of olanzapine. Has been active in the milieu and in groups. 11/05/2023: Spent most of the morning in bed. She says "that's normal" for her in general, but that she slept especially poorly last night was intrusive, obsessive thoughts. She did attend groups last night and once she got up today. She has tolerated increase in escitalopram well, with no adverse effects attributed to that medication. 11/04/2023: Pt volunteered her understanding that SSRI's are a preferred type of medication for OCD as well as that her current dose was likely still low. Risks and benefits of, and alternatives to, the use of escitalopram (Lexapro) for Obsessive-Compulsive Disorder symptoms were reviewed. This discussion included but was not limited to issues known potentially to be associated with use of such medication, especially at high doses or with longer use, including sedation, weight gain, GI side effects, or rarely induction or worsening of suicidal thoughts about which there is an FDA warning for adolescents and young adults. Discussed the need to avoid abrupt cessation due to risk of discontinuation syndrome. The patient would like to titrate escitalopram to 20 mg. (1) Adjustment disorder with depressed mood: (2) Obsessive compulsive disorder: (3) Vitamin D insufficiency: Plan 11/07/2023: * continue ergocalciferol 50,000 IU weekly x 3 more weeks (1st dose 11/06/2023) then cholecalciferol 2,000 IU daily * continue escitalopram 20 mg daily * reduce hydroxyzine to 100 mg QHS with 50 mg PRN repeat * continue lorazepam 0.5 mg Q6H PRN anxiety * continue olanzapine 5 mg QHS * continue ondansetron ODT 4 mg SL Q6H PRN nausea 11/06/2023: * start ergocalciferol 50,000 IU weekly x 4 weeks * continue escitalopram 20 mg daily * increase hydroxyzine to 150 mg QHS * start lorazepam 0.5 mg Q6H PRN anxiety * start olanzapine 5 mg QHS * start ondansetron ODT 4 mg SL Q6H PRN nausea 11/05/2023: * continue escitalopram 20 mg daily * In addition to the screening labs ordered in the ED, will order vitamin B12 level, folic acid level, 25-OH vitamin D level, ESR to rule out conditions potentially related to psychiatric symptoms. 11/04/2023: The patient was admitted to the [facility] ([facility] mental health unit) on q15 minute checks (behavioral with suicide precautions) for safety.The patient will participate in group, recreational, and milieu therapies and will be offered additional individual and family sessions as clinically appropriate. * increase escitalopram to 20 mg daily - prior to admission medication at 10 mg daily Inventory Assets Strengths: supportive relationships, has local supports, voluntary, good insight, intelligent, attending classes Needs: safety and stabilization, medication adjustment, additional coping skills Suicide Risk Level Suicide Risk Level: High-Moderate (q15 min suicide checks) (continues to have thoughts, though contracts for safety on the unit) 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, [employer]) Stable Relationships: Yes Supportive Family: Yes Good Rapport with Provider: Yes Interval History Identifying Information MAVERICK LEBLANC is a 23-year-old F who currently lives in [place] in a dorm with a roommate, has a history of OCD, and was admitted on 11/03/23 20:16 on a 201 voluntary commitment for suicidal thoughts Chief Complaint "I slept a lot better, but I'm a little dizzy". Review of Systems Sleep Information Total Hours of Sleep: 7 Sleep Comments: Awoke early Meal Information Percent Meal Consumed - Breakfast: 75 Percent Meal Consumed - Lunch: 50 Percent Meal Consumed - Dinner: 70 Nutrition Comment: pt stated that her dinner was good. pt has a history of eating disorder. Subjective Subjective The patient was seen and assessed and interval progress reviewed in a multidisciplinary team meeting with the treatment team. For details, see the "Impression" section. Overall I spent a total of 44 minutes for this inpatient follow-up including review of chart records, review of test results, direct evaluation of the patient [id number], counseling the patient, medication education with the patient, risk assessment, discussion during interdisciplinary treatment rounds, and documentation in the electronic health record. Physical Exam Psychiatric Orientation: alert, oriented to person, oriented to place, oriented to time and cooperative Apperance: appropriately dressed and appropriately groomed Eye Contact: + fair eye contact Motor Behavior: no abnormal motor movements Speech: normal rate/rhythm/volume of speech Affect: + constricted affect Mood: + depressed mood and + anxious mood Thought Process: linear/logical thought process and thought association intact Thought Content: + obsessions and reality based without delusions Suicidal Thoughts: denies suicidal plan and denies suicidal intent; + reports suicidal thoughts (currently passive) Homicidal Thoughts: denies homicidal thoughts Hallucinations: no auditory hallucinations and no visual hallucinations Cognition: recent memory grossly intact, remote memory grossly intact, attention grossly intact and language grossly intact Estimated Intelligence: consistent with education level Insight: + fair insight Judgment: + fair judgement Vital Signs (Past 24 Hours) Last Vital Signs Temp 36.9 C 11/07/23 06:34 Pulse 64 11/07/23 06:34 Resp 16 11/07/23 06:34 BP 97/65 L 11/07/23 06:34 Pulse Ox 98 11/03/23 22:23 O2 Del Method Room Air 11/03/23 22:23 Results & Data ([facility]) Current Inpatient Medications Current Inpatient Medications: Current Inpatient Medications Acetaminophen (Acetaminophen 325 Mg Tab) 650 mg PO Q4H PRN PRN Reason: Headache or Minor Fever Stop: 12/03/23 21:33 Last Admin: 11/05/23 11:06 Dose: 650 mg Al Hydrox/Mg Hydrox/Simethicone (Aluminum/Magnesium Susp 30 Ml Udc) 30 ml PO Q4H PRN PRN Reason: GI Upset Stop: 12/03/23 21:33 Bismuth Subsalicylate (Bismuth Subsalicylate Liqd 236 Ml) 15 ml PO PRN PRN PRN Reason: Loose Stool Stop: 12/03/23 21:33 Escitalopram Oxalate (Escitalopram Oxalate 20 Mg Tab) 20 mg PO QDL NABILA Stop: 12/05/23 12:29 Last Admin: 11/06/23 13:05 Dose: 20 mg Hydroxyzine HCl (Hydroxyzine Hcl 25 Mg Tab) 25 mg PO Q4H PRN PRN Reason: Anxiety Stop: 12/03/23 21:33 Last Admin: 11/06/23 06:14 Dose: 25 mg Hydroxyzine HCl (Hydroxyzine Hcl 25 Mg Tab) 150 mg PO HSZ NABILA Stop: 12/06/23 21:59 Last Admin: 11/06/23 22:01 Dose: 150 mg Lorazepam (Lorazepam 0.5 Mg Tab) 0.5 mg PO Q6H PRN PRN Reason: Anxiety Stop: 12/06/23 13:22 Magnesium Hydroxide (Magnesium Hydroxide Susp 30 Ml Udc) 30 ml PO DAILY PRN PRN Reason: Constipation Stop: 12/03/23 21:33 Olanzapine (Olanzapine 5 Mg Tablet) 5 mg PO HS NABILA Stop: 12/06/23 21:59 Last Admin: 11/06/23 22:01 Dose: 5 mg Ondansetron HCl (Ondansetron 4 Mg Od Tab) 4 mg PO Q6H PRN PRN Reason: Nausea Stop: 12/06/23 14:08 Sodium Chloride (Sodium Chloride 0.65% Na Soln 45 Ml ([place])) 1 - 2 sprays NA PRN PRN PRN Reason: Nasal Dryness/Congestion Stop: 12/03/23 21:33 Mental Health & Subst Abuse Tx Psychiatrist Name of Psychiatrist: Judah Au Psychiatrist's Date Of Appointment With Psychiatric Provider: 11/28/2023 Time of Appointment with Psychiatrist: 2:30pm Psychiatric Appointment Comment: telehealth Therapist Name of Therapist: [facility] Therapist's Phone Number: Date of Therapist Appointment: 11/12/2023 Time of Therapist Appointment: 1pm Therapy Appointment Comment: [address] [facility] [id number], [place] [address] De Icer Installer Name of De Icer Installer: [employer] Phone Number for De Icer Installer: [phone] Case Management Appointment Comment: Zoom link will be sent to [employer] email Post Discharge Appointments Primary Care Physician Name Of Family Doctor/PCP: [facility] Primary Care Time of Appointment with PCP: please follow up as needed Provider Appointment Comment: [facility] Contact Information Discharge Discharge Address: [address] [place] [id number] Contact Information Comment: locally lives in [employer] dorm (2) Obsessive compulsive disorder Obsessive-compulsive disorder type: mixed obsessional thoughts and acts Qualified Code(s): F42.2 - Mixed obsessional thoughts and acts
[2023-11-07] MEDS: ESCITALOPRAM OXALATE 20 MG TAB PO SCH (13:00)
[2023-11-07] MEDS ORDERED: hydrOXYzine HCl 25 MG TAB PO PRN (14:06)
[2023-11-07 17:32] LABS: Marijuana Quant, GCMS Urine 132 ng/mL (<5)
[2023-11-07] MEDS: OLANZapine 5 MG TABLET PO SCH (20:04)
[2023-11-07] MEDS ORDERED: hydrOXYzine HCl 25 MG TAB PO SCH (22:00)
[2023-11-08] MEDS: ESCITALOPRAM OXALATE 20 MG TAB PO SCH (08:47)
--- NOTE | 2023-11-08 10:29 | Discharge Summary ---
Date of Service November 08, 2023 History of Present Illness As part of a thorough review of the available medical records, I have read and incorporated into my assessment the following note by the ED physician: "This patient is a 23-year-old Female who presents to the ED for evaluation of worsening OCD. Patient reports that she got into an argument/breaking up with her boyfriend yesterday, "worsening my mental health". Patient reports that she has thought of hurting herself, but does not have a plan. She denies any homicidal thoughts." the following note by the ED psychiatric case management assistant: "Met with the patient during Dr. Herrera examination to complete Brief and Suicide Risk Assessments then met with the patient to gather information for CM Psychiatric Mental Health Evaluation. The patient presents from [facility] where she was assessed and expressed suicidal ideations following the breakup with her boyfriend of almost 2 years (reports she thought the relationship was going well and wasnt expecting the breakup. The patient reports she doesnt have a specific plan at this time, but has thought of ways to kill herself, but doesnt want to do anything that doesnt work. She reports she has thought of overdosing on medication or walking in front of a car, but the cars go too slow, so I would have to walk somewhere else. The patient reports he boyfriend broke up with her because he found out he wont be able to graduate due to grades and he felt he wouldnt be a good partner for her. She reports he hasnt wanted to talk to her about the breakup and found out that he hooked up with a close friend of his after breaking up with her. The patient reports she was already in a bad place with her mental health secondary to her OCD and report recently starting on Lexapro (increased to 10mg yesterday), but she doesnt feel as though it is effective yet. The patient reports stressors of her breakup and her general mental health related to her OCD. She reports she has depressive symptoms of anergia, anhedonia, crying and feeling helpless and hopeless. She reports a history of anorexia nervosa (treated a year ago and hasnt had any problems since then) and a poor appetite of the past few days since the breakup. The patient reports problems falling and staying asleep, then not being motivated to get up in the mornings, which causes her to miss classes (reports she isnt doing poorly in school, but may be getting Bs instead of As in some of her classes). The patient reports high levels of anxiety recently (currently a 9) with shortness of breath, chest pain and decreased appetite. The patient admits to social drinking and using marijuana prior to meals (related to history of gastroparesis). She reports a history of SIB from scratching (last around a year ago) and a remote history of friction vogel from erasers. The patient denies manic symptoms, hallucinations / delusional thinking, H/I, aggressive behavior, trauma and access to weapons. The patient is considering inpatient treatment but would like to speak with her mother (who is on the way to the hospital) prior to making any decisions." and the following note by the psychiatric liaison nurse: "Alert and oriented x4. Pt tearful but cooperative. Pt allowed for mom and sister to stay in room during liaison assessment in ED. 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 Pt states she took an uber to the ED. Pt states having suicidal ideations for past 9 months but had escalated after her boyfriend had broken up with her a day (or so) ago. Pt states her boyfriend knew he was not going to pass and graduate from [employer] and that's why he said he was breaking up with her. Pt states then her ex hooked up with one of his female friends yesterday. Pt states she was already having issues with mental health. Pt states she has OCD and has been having intrusive thoughts about for last 9 months as well. Pt denies these thoughts as any type of hallucinations telling her to kill herself. Pt denies any type of hallucinations or delusions. Pt denies current SI but has scratched her skin and given herself friction vogel with erasers over a year ago. Pt states having a hx of OCD, autism, anorexia, and past social anxiety disorder. Pt also stating having gastroparesis (and eating marijuana gummies to help with this). Pt denies hx of suicide attempts. Denies trauma hx. Pt denies prior psychiatric inpatient admissions. Later states she was hospitalized in fall 2021 for anorexia. Pt states current medications include Lexapro that was started a few weeks ago and recently increased to 10mg po daily. Current outpt providers include Dr. Gamez with [facility], Ernesto Edwards (therapy), and Neha Au [facility]- at [facility] (who prescribes her Lexapro). Pt states appetite as been poor. Has been sleeping too much averaging 11hrs with trouble waking up. Anxiety normally 7/10 but recently 9/10. Depression normally 5/10 but now a 7 due to the breakup. Pt denies tobacco use. Uses marijuana gummies and occasional alcohol. Pt states she drinks socially approx once per month with 5-6 drinks per occasion. Pt denies legal issues. Pt denies access to firearms at dorm room. Guns at home with parents that are locked up according to pt. Pt states having one roommate but wouldn't say she is a support. Pt states her family members are good supports and protective factors. Pt states at times "thinking about my family shouldn't stop me from ending things." Pt states she enjoys hanging out with friends, playing video games, drawing , and watching documentaries. ROIs signed for parents (Celeste and Viktor Willard), Dr. Gamez, Ernesto Edwards, and Neha Au." Review of the medical record reveals no previous or outside psychiatric records. Review of pertinent labs reveals they are noncontributory. A urine toxicology screen was positive for metabolites of cannabis. BAL was <10 mg/dL. screen was negative. Pt reports "lifelong" obsessions, with her first severe period at age 8 years. Her obsessions take the form of "intrusive thoughts of ", including images of people, repetitive thoughts of ways in which she might kill herself, or thoughts about the deaths of people close to her. These are highly ego-dystonic and she engages in various mental rituals (especially forcing herself to repeat abhorrent thoughts). She makes copious lists but isn't sure if that's compulsive or coping. She has a history of anorexia with an admission to an eating disorders unit in 2021 and says she's now in recovery. She has long struggled with initial and middle insomnia and daytime hypersomnia. She had a polysomnographic sleep study in April of 2023 that was interpreted as essentially normal. Denies a history of depression symptoms until very recently when her boyfriend of 2 years abruptly announced that he'd slept with one of her friends because he got poor grades and wasn't good enough for her. She's felt sad, overwhelmed, and hopeless and began contemplating walking in front of a car to kill herself, but didn't because she wasn't sure it would kill rather than maim her. She says OCD was only recently diagnosed and that she started escitalopram 5 mg a couple of weeks ago that was increased to 10 mg a few days ago. She had first been started on bupropion but "it was horrible" and exacerbated her anxiety. Physical Exam Psychiatric Orientation: alert, oriented to person, oriented to place, oriented to time and cooperative Apperance: appropriately dressed and appropriately groomed Eye Contact: + fair eye contact Motor Behavior: no abnormal motor movements Speech: normal rate/rhythm/volume of speech Affect: + constricted affect Mood: + depressed mood and + anxious mood Thought Process: linear/logical thought process and thought association intact Thought Content: + obsessions and reality based without delusions Suicidal Thoughts: denies suicidal plan and denies suicidal intent; + reports suicidal thoughts (currently passive) Homicidal Thoughts: denies homicidal thoughts Hallucinations: no auditory hallucinations and no visual hallucinations Cognition: recent memory grossly intact, remote memory grossly intact, attention grossly intact and language grossly intact Estimated Intelligence: consistent with education level Insight: + fair insight Judgment: + fair judgement Vital Signs (Past 24 Hours) Last Vital Signs Temp 37.1 C 11/08/23 07:49 Pulse 78 11/08/23 07:49 Resp 16 11/08/23 07:49 BP 103/69 11/08/23 07:49 Pulse Ox 98 11/08/23 07:49 O2 Del Method Room Air 11/03/23 22:23 See admission H&P and DOD assessment. Principal Diagnosis Adjustment Disorder With Depressed Mood Psychiatric Data See daily stay summary. In short, safety was maintained and the patient was c ooperative with care. Medication changes included titration of escitalopram to 20 mg daily and addition of olanzapine 5 mg QHS as well as use of hydroxyzine 100-150 mg at HS for insomnia and they tolerated this well. A family session was held and safety plan was completed prior to discharge. 11/08/2023: Feels less dizzy. BP has been WNR. Meeting with ex-boyfriend yesterday evening went well. She looks forward to family meeting later this morning and anticipates discharge following that. 11/07/2023: 25-OH vitamin D level was in the insufficient range at 22.0 ng/mL. The remainder of the labs ordered yesterday were normal. I reviewed those results with pt. Slept somewhat better last night; she was able to get to sleep within about an hour with fewer intrusive ruminations about and "was able to get back to sleep relatively quickly" the several times she woke during the night. She continues to voice suicidal thoughts in addition to her chronic -themed obsessive thoughts but says that these thoughts are less prominent and are become difficult to distinguish from her -oriented obsessive thoughts. Discussed her low BP as a likely reason for her dizziness as well as possibility that recent medication changes might be driving that. She's hesitant to reduce medication dose, especially olanzapine, because it seems to be helping. 11/06/2023: Tearful at times. Spoke with her ex-boyfriend by phone. He was apologetic but she isn't sure to what degree she should accept his apologies and intends not to reconcile with without couple therapy first. She's felt more sad since then. Slept poorly again, with intrusive, obsessive thoughts with no improvement following increase of hydroxyzine to 100 mg. She remains very anxious (was visibly apprehensive when a therapy dog visited the unit) and finds that she feels very nauseated when anxious. Discussed with pt that there are a few RCTs indicating that olanzapine can be effective for obsessive-compulsive symptoms. Risks and benefits of, and alternatives to, the use of olanzapine (Zyprexa) off-label for OCD symptoms were reviewed. This discussion included but was not limited to issues known potentially to be associated with use of such medication, especially at high doses or with longer use, including sedation, weight gain, problems with glucose metabolism including Type II diabetes, problems with lipid metabolism, cardiac conduction problems, or rarely involuntary movements, parkinsonian symptoms, or even acute dystonia or life-threatening Neuroleptic Malignant Syndrome. Discussed the need for periodic monitoring of fasting glucose or Hemoglobin A1c and fasting lipid panel, which had previously been done so were not repeated for baseline monitoring. The patient would like to start a trial of olanzapine. Has been active in the milieu and in groups. 11/05/2023: Spent most of the morning in bed. She says "that's normal" for her in general, but that she slept especially poorly last night was intrusive, obsessive thoughts. She did attend groups last night and once she got up today. She has tolerated increase in escitalopram well, with no adverse effects attributed to that medication. 11/04/2023: Pt volunteered her understanding that SSRI's are a preferred type of medication for OCD as well as that her current dose was likely still low. Risks and benefits of, and alternatives to, the use of escitalopram (Lexapro) for Obsessive-Compulsive Disorder symptoms were reviewed. This discussion included but was not limited to issues known potentially to be associated with use of such medication, especially at high doses or with longer use, including sedation, weight gain, GI side effects, or rarely induction or worsening of suicidal thoughts about which there is an FDA warning for adolescents and young adults. Discussed the need to avoid abrupt cessation due to risk of discontinuation syndrome. The patient would like to titrate escitalopram to 20 mg. Day of Discharge Assessment Today the patient voices readiness for discharge. They note improvement in mood and deny thoughts to harm self or others. Thoughts remain organized and they are improved from admission. There is no evidence of psychosis. They agree to take mediations as prescribed and keep follow-up appointments. They are stable for discharge to outpatient level of care. Overall I spent a total of 33 minutes on the floor for this discharge including review of chart records, review of test results, direct evaluation of the patient [id number], counseling the patient, reconciling and ordering medication, medication education with the patient, risk assessment, discussion during interdisciplinary treatment rounds, and documentation in the electronic health record. Transition of Care Transition Of Care Record: was reviewed with the patient Advance Directives Advance Directives Information Provided: Yes Advance Directives: No Mental Health Advance Directive: No Advance Directives on File: No Living Will: No Power of Truckload Owner Operator: No Advance Directives Reason:: Declines as Mental Health Visit. Suicide Risk Level Suicide Risk Level Comments: Suicide risk at discharge is deemed low as the patient is no longer requiring 24-hr monitoring, has a safety plan, and is free of suicidal ideation at discharge. 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) Stable Relationships: Yes Supportive Family: Yes Good Rapport with Provider: Yes Tobacco Cessation at Discharge Tobacco Cessation Medication Prescribed at Discharge: Not Applicable/Non-Smoker Total Time Total Time Spent: Greater Than 30 Minutes (33) Total Time Includes: Examination of the patient, Discharge Planning, Medication Reconciliation and As well as (documentation) Discharge Data Lab Results 11/03/23 11/03/23 11/05/23 15:39 16:18 17:24 WBC 10.63 RBC 4.83 Hgb 14.4 Hct 41.6 MCV 86.1 MCH 29.8 MCHC 34.6 RDW Std Deviation 40.0 RDW Coeff of Adam 12.8 Plt Count 230 MPV 9.0 L Immature Gran % (Auto) 0.3 Neut % (Auto) 79.4 Lymph % (Auto) 15.7 Ceiba % (Auto) 4.3 Eos % (Auto) 0.0 Baso % (Auto) 0.3 Neut # (Auto) 8.44 H Lymph # (Auto) 1.67 Ceiba # (Auto) 0.46 Eos # (Auto) 0.00 Baso # (Auto) 0.03 Immature Gran # (Auto) 0.03 ESR 3 Sodium 137 Potassium 3.5 Chloride 106 Carbon Dioxide 22 Anion Gap 9 BUN 10 Creatinine 0.58 L Est Cr Clr Drug Dosing 114.8 Est GFR ( Amer) > 150.0 Est GFR (Non-Af Amer) 131.8 BUN/Creatinine Ratio 17.2 Glucose 89 Calcium 9.8 Total Bilirubin 0.3 AST 16 ALT 9 Alkaline Phosphatase 53 Total Protein 7.6 Albumin 5.0 Globulin 2.6 Albumin/Globulin Ratio 1.9 Vitamin B12 375 25-OH Vitamin D Total 22.0 L Folate 18.68 TSH 1.814 Urine Color Yellow Urine Appearance Slightly Cloudy Urine pH 8.5 H Ur Specific [place] 1.020 Urine Protein 2+ H Urine Glucose (UA) Negative Urine Ketones Negative Urine Blood Negative Urine Nitrite Negative Urine Bilirubin Negative Urine Urobilinogen Negative Ur Leukocyte Esterase Negative Urine RBC 0-4 Urine WBC 0-5 Ur Epithelial Cells >30 H Urine Bacteria Negative Hyaline Casts 0-5 Salicylates < 3.0 L Urine Opiates Screen Neg Ur Methadone, Qual Neg Acetaminophen < 3 L Urine Barbiturates Neg Ur Phencyclidine (PCP) Neg U Amphetamin/Meth Scrn Neg MDMA (Ecstasy) Screen Neg U Benzodiazepines Scrn Neg Ur Cocaine Metabolite Neg U Marijuana (THC) Screen Pos H U Marijuana THC Carboxy 132 H Drug Screen Comment SEE NOTE Ethyl Alcohol mg/dL < 10.0 SARS-CoV-2, RNA, NAAT NEGATIVE Hospital Course (1) Adjustment disorder with depressed mood: (2) Obsessive compulsive disorder: (3) Vitamin D insufficiency: Plan 11/07/2023: * continue ergocalciferol 50,000 IU weekly x 3 more weeks (1st dose 11/06/2023) then cholecalciferol 2,000 IU daily * continue escitalopram 20 mg daily * reduce hydroxyzine to 100 mg QHS with 50 mg PRN repeat * continue lorazepam 0.5 mg Q6H PRN anxiety * continue olanzapine 5 mg QHS * continue ondansetron ODT 4 mg SL Q6H PRN nausea 11/06/2023: * start ergocalciferol 50,000 IU weekly x 4 weeks * continue escitalopram 20 mg daily * increase hydroxyzine to 150 mg QHS * start lorazepam 0.5 mg Q6H PRN anxiety * start olanzapine 5 mg QHS * start ondansetron ODT 4 mg SL Q6H PRN nausea 11/05/2023: * continue escitalopram 20 mg daily * In addition to the screening labs ordered in the ED, will order vitamin B12 level, folic acid level, 25-OH vitamin D level, ESR to rule out conditions potentially related to psychiatric symptoms. 11/04/2023: The patient was admitted to the [facility] ([facility] mental health unit) on q15 minute checks (behavioral with suicide precautions) for safety.The patient will participate in group, recreational, and milieu therapies and will be offered additional individual and family sessions as clinically appropriate. * increase escitalopram to 20 mg daily - prior to admission medication at 10 mg daily Mental Health & Subst Abuse Tx Psychiatrist Name of Psychiatrist: Judah De La Cruz- [facility] Psychiatrist's Date Of Appointment With Psychiatric Provider: 11/28/2023 Time of Appointment with Psychiatrist: 2:30pm Psychiatric Appointment Comment: telehealth Psychiatrist Release of Information: Obtained, Reviewed and Signed Therapist Name of Therapist: Kiet Hull, [employer] [employer] Therapist's Phone Number: [phone] Date of Therapist Appointment: 11/12/2023 Time of Therapist Appointment: 1pm Therapy Appointment Comment: [id number], [place] [address] Therapist Release of Information: Obtained, Reviewed and Signed Radiology Director Name of Radiology Director: [facility] Phone Number for Radiology Director: [phone] Date of Appointment with Radiology Director: 11/11/23 Time of Appointment with Radiology Director: 9:30 AM Case Management Appointment Comment: Zoom link will be sent to [employer] email Post Discharge Appointments Primary Care Physician Name Of Family Doctor/PCP: [facility] Primary Care Time of Appointment with PCP: please follow up as needed Provider Appointment Comment: [facility] Smoking Cessation Counseling Tobacco Cessation Medication Prescribed at Discharge: Not Applicable/Non-Smoker Contact Information Discharge Discharge Address: [address] [place] [id number] Contact Information Comment: doug lives in [employer] dorm Discharge Plan Discharge Items Patient Disposition: Home - Self-Care Reason For Visit: MAJOR DEPRESSIVE DISORDER Discharge Diagnosis: Adjustment Disorder With Depressed Mood Activity: Resume your previous activity Non-emergency contact: Primary Care Provider and Psychiatrist Call non-emergency contact if: you have any medication questions Follow-up/Referrals: Conrad Gmaez [Primary Care Provider] - Diet: Regular Addtl Attending Provider Instructions: SPECIAL CARE INSTRUCTIONS: 1. Follow through with your scheduled aftercare appointments. If unable to keep an appointment, please call to reschedule. 2. Take your medication only as prescribed. Medication should not be changed or stopped without the approval of your doctor. In the event of worsening symptoms or concerns about side effects, contact your doctor immediately. 3. Utilize new healthy coping skills, anger management skills, and stress management skills learned during your hospitalization. Journal feelings and process them with a support person. Identify stressors or situations that may result in relapse, deterioration or inappropriate behaviors and develop a plan to deal with those issues. 4. If your coping skills are ineffective and you are in crisis, contact your outpatient providers for direction. If unable to reach your providers, please call the [facility] CRISIS LINE AT , go to the [facility] walk-in center at [address], [address], [place], or go to the closest Emergency Room. 5. Avoid alcohol and un-prescribed drugs. 6. You have been provided with the Mental Health Advance Directives Pamphlet for your review. 7. Your condition is stable for discharge to outpatient level of care, but recovery is an ongoing process. Ifthoughts to harm yourself or others return, follow the safety plan developed during your stay. Planning for a safe return home includes securing weapons. Our treatment team recommends weaponsbe removed from the home until your outpatient provider reassesses your progress. In rare cases where the items themselvescannot be removed, guns and ammunitionshould be secured separatelyand keys stored by a reliable personoutside of the home. If you were admitted on an involuntary commitment, the police or other legal authorities may be involved in this process. AFTERCARE APPOINTMENTS: * Please call your insurance company prior to your scheduled appointment to confirm your aftercare providers are covered. Take your insurance information to your a ppointments. WHO TO CALL AND WHEN: Medical Emergencies: For questions or emergencies related to your hospital stay, please contact the Inpatient Behavioral Health Unit at [phone]. A face and fill packer is on-call 29/04 for the Behavioral Health Unit for emergencies At any time you feel your situation is an emergency, you may also call 911 immediately. VITAMIN D For your Vitamin D insufficiency, take [id number] Vitamin D3 (cholecalciferol) 10,000 IU one capsule by mouth once a day for 4 weeks. When the 10,000 IU Vitamin D3 is finished, start [id number] Vitamin D3 (cholecalciferol) 2,000 IU one capsule by mouth every day. After a month of daily Vitamin D3 2,000 IU you should have your Vitamin D level re-checked. Pending Studies at Discharge: No Stand-Alone Forms: My [place], Smoking Cessation Medications and DC Order Prescriptions: New escitalopram oxalate 20 mg Tablet 20 mg PO QDL 30 Days Qty: 30 0RF hydroxyzine HCl 50 mg tablet 100 mg PO HSZ 30 Days Qty: 60 0RF hydroxyzine HCl 50 mg tablet 50 mg PO HS PRN (Reason: insomnia) 30 Days Qty: 30 0RF olanzapine 5 mg Tablet 5 mg PO HS 30 Days Qty: 30 0RF ondansetron 4 mg tablet,disintegrating 4 mg PO Q6H PRN (Reason: nausea) 30 Days Qty: 100 0RF Continued albuterol sulfate 90 mcg/actuation HFA aerosol inhaler 2 puff inhalation Q6H PRN (Reason: Panic Attack(S)) Discontinued Lexapro capsule 10 mg PO DAILY Discharge Orders: Discharge Order (Routine); Ordered 11/08/23 Ordered By: Tyler Ortega Admission Data Admit Date/Time: 11/03/23 20:16 Attending Provider: Tyler Ortega Admit Provider: Tyler Ortega Primary Care Provider: Conrad Gamez Other Interventions: Discharge Summary Assessment (RN) Last Done: 11/08/23 07:49 PSY Interdisciplinary Discharge Planning Last Done: 11/08/23 10:12 Coding Level of Care Code 28216 D/C day mgmt > 30 min Diagnoses Adjustment disorder with depressed mood F43.21 Mixed obsessional thoughts and acts F42.2 Obsessive-compulsive disorder type: mixed obsessional thoughts and acts Vitamin D insufficiency E55.9 Time Spent (min) 33
== END 2023-11-08 11:32 | disposition home or self-care (01) | DRG 881 ==
LOC: ED 15:21 → 3S 20:16
DX: Z91.048 Other nonmedicinal substance allergy status; F43.21 Adjustment disorder with depressed mood; E55.9 Vitamin D deficiency, unspecified; Z79.899 Other long term (current) drug therapy; F17.200 Nicotine dependence, unspecified, uncomplicated; J45.909 Unspecified asthma, uncomplicated; Z82.5 Family history of asthma and other chronic lower respiratory diseases; G47.00 Insomnia, unspecified; F40.10 Social phobia, unspecified; Z63.9 Problem related to primary support group, unspecified; F42.9 Obsessive-compulsive disorder, unspecified; R45.851 Suicidal ideations; Z81.8 Family history of other mental and behavioral disorders